=== PATIENT | female | born 1955 | race African-American/Black ===

== ENCOUNTER 2018-04-01 08:15 | Emergency (ER) | payer OTHER ==
[2018-04-01 09:17] LABS: Absolute Lymphocytes (CBC) 3.4 K/uL (0.7-4.9); Absolute Monocytes 0.5 K/uL (0.1-1.3); Absolute Neutrophil 1.3 K/uL (1.8-8.0); Basophils % 0.8 % (0-1.3); Eosinophils % 1.7 % (0-4.4); Hematocrit 40.6 % (36.0-45.0); Lymphocytes % 63.3 % (15.3-44.8); MCH 29.3 pg (27.0-35.0); MCV 87.8 fL (80-100); MPV 10.3 fL (7.6-11.3); Monocytes % 9.3 % (3.3-12.3); RBC Red Blood Cell Count 4.62 M/uL (3.86-4.86)
[2018-04-01 09:20] LABS: Protime INR 0.99
[2018-04-01 09:37] LABS: ALT/SGPT 42 U/L (12-78); AST/SGOT 33 U/L (15-37); Albumin 3.5 g/dL (3.4-5.0); Alkaline Phosphatase 89 U/L (45-117); BUN Blood Urea Nitrogen 25 mg/dL (7-18); Bicarbonate 30 mmol/L (21-32); Bilirubin Direct < 0.1 mg/dL (0-0.2); Bilirubin Total 0.3 mg/dL (0.2-1.0); Creatine Phosphokinase 72 U/L (26-192); Glucose Level 108 mg/dL (74-106); Magnesium 2.2 mg/dL (1.8-2.4); NT PRO-BNP 191 pg/mL (<125); Potassium 3.7 mmol/L (3.5-5.1); Protein, Total 7.2 g/dL (6.4-8.2); Sodium Level 143 mmol/L (136-145)
[2018-04-01] MEDS ORDERED: KETOROLAC 30 MG/ML INJ ONE (09:51)
[2018-04-01] MEDS ORDERED: ONDANSETRON 4 MG/2 ML VIAL ONE (09:55)
[2018-04-01 10:14] LABS: Blood Morphology Comment NOT SEEN (NOT SEEN)
[2018-04-01 10:15] LABS: Platelet Estimate ADEQ
[2018-04-01 10:33] LABS: Urine Blood NEGATIVE (NEG); Urine Glucose NEGATIVE (NEG); Urine Protein TRACE (NEG)
--- NOTE | 2018-04-01 11:42 | RAD REPORT ---
EXAM DESCRIPTION: RAD - Chest Single View - 04/01/2018 8:59 am CLINICAL HISTORY: CHEST PAIN Chest pain. COMPARISON: No comparisons FINDINGS: Portable technique limits examination quality. The lungs are grossly clear. The heart is normal in size. No displaced fractures. IMPRESSION: No acute intrathoracic process suspected.
--- NOTE | 2018-04-01 15:14 | EDPHYS ---
Physician Documentation [facility] Name: Halima Valera Age: 62 yrs Sex: Female : 1955 Arrival Date: 04/01/2018 Time: 08:17 Bed 6 Private MD: ED Physician Viktor Wright HPI: 04/01 08:34 This 62 yrs old Black Female presents to ER via Ambulatory with complaints of Chest kdr Pain, COPD Exacerbation. 08:34 The patient or guardian reports chest pain that is located primarily in the substernal kdr area, anterior chest wall, right. Onset: suddenly, just prior to arrival, this morning. The pain does not radiate. Associated signs and symptoms: Pertinent positives: nausea, Pertinent negatives: abdominal pain, cough, diaphoresis, headache, lower extremity pain, lower extremity swelling, lightheadedness, near syncope, palpitations, recent travel, shortness of breath, syncope, vomiting. The chest pain is described as burning, sharp. Duration: The patient or guardian reports a single episode, that is still ongoing. Modifying factors: The symptoms are alleviated by nothing. the symptoms are aggravated by nothing. Severity of pain: At its worst the pain was mild in the emergency department the pain is unchanged. The patient has not experienced similar symptoms in the past. The patient has not recently seen a physician. Historical: - Allergies: 08:27 No Known Allergies; ss - Home Meds: 08:27 naproxen 500 mg Oral tab 1 tab every 12 hours [Active]; valsartan-hydrochlorothiazide ss oral oral once daily [Active]; atorvastatin 10 mg oral tab 1 tab once daily [Active]; - PMHx: 08:27 Hypertension; substance abuse (crack); Hepatitis; ss - Immunization history:: Adult Immunizations unknown. - Social history:: Smoking status: Patient uses tobacco products, denies chronic smoking, but will smoke occasionally. - Ebola Screening: : Patient denies exposure to infectious person Patient denies travel to an Ebola-affected area in the 21 days before illness onset. ROS: 08:34 Constitutional: Negative for fever, chills, and weight loss, Eyes: Negative for injury, kdr pain, redness, and discharge, ENT: Negative for injury, pain, and discharge, Neck: Negative for injury, pain, and swelling, Respiratory: Negative for shortness of breath, cough, wheezing, and pleuritic chest pain, Abdomen/GI: Negative for abdominal pain, nausea, vomiting, diarrhea, and constipation, Back: Negative for injury and pain, : Negative for injury, bleeding, discharge, and swelling, MS/Extremity: Negative for injury and deformity, Skin: Negative for injury, rash, and discoloration, Neuro: Negative for headache, weakness, numbness, tingling, and seizure activity. 08:34 Cardiovascular: Positive for chest pain, Negative for edema, orthopnea, palpitations, paroxysmal nocturnal dyspnea. Exam: 08:34 Constitutional: This is a well developed, well nourished patient who is awake, alert, kdr and in no acute distress. Head/Face: Normocephalic, atraumatic. Eyes: Pupils equal round and reactive to light, extra-ocular motions intact. Lids and lashes normal. Conjunctiva and sclera are non-icteric and not injected. Cornea within normal limits. Periorbital areas with no swelling, redness, or edema. Neck: Trachea midline, no thyromegaly or masses palpated, and no cervical lymphadenopathy. Supple, full range of motion without nuchal rigidity, or vertebral point tenderness. No Meningismus. Chest/axilla: Normal chest wall appearance and motion. Nontender with no deformity. No lesions are appreciated. Cardiovascular: Regular rate and rhythm with a normal S1 and S2. No gallops, murmurs, or rubs. Normal PMI, no JVD. No pulse deficits. Respiratory: Lungs have equal breath sounds bilaterally, clear to auscultation and percussion. No rales, rhonchi or wheezes noted. No increased work of breathing, no retractions or nasal flaring. Abdomen/GI: Soft, non-tender, with normal bowel sounds. No distension or tympany. No guarding or rebound. No evidence of tenderness throughout. Back: No spinal tenderness. No costovertebral tenderness. Full range of motion. Skin: Warm, dry with normal turgor. Normal color with no rashes, no lesions, and no evidence of cellulitis. MS/ Extremity: Pulses equal, no cyanosis. Neurovascular intact. Full, normal range of motion. Neuro: Awake and alert, GCS 15, oriented to person, place, time, and situation. Cranial nerves II-XII grossly intact. Motor strength 5/5 in all extremities. Sensory grossly intact. Cerebellar exam normal. Normal gait. Psych: Awake, alert, with orientation to person, place and time. Behavior, mood, and affect are within normal limits. Vital Signs: 08:31 BP 170 / 82; Pulse 57; Resp 16; Temp 97.1; Pulse Ox 100% on R/A; Weight 58.97 kg; ph Height 5 ft. 4 in. (162.56 cm); Pain 9/10; 09:45 BP 149 / 61; Pulse 52; Resp 22; Pulse Ox 99% on R/A; Pain 9/10; ph 10:30 BP 139 / 82; Pulse 48; Resp 16; Pulse Ox 99% ; jl7 11:23 BP 139 / 88; Pulse 77; Resp 18; Pulse Ox 99% on R/A; Pain 6/10; ph 12:00 BP 155 / 85; Pulse 56; Resp 18; Pulse Ox 97% ; jl7 13:00 BP 191 / 86; Pulse 49; Resp 16 S; Pulse Ox 98% on R/A; jl7 13:30 BP 185 / 83; Pulse 47; Resp 16; Pulse Ox 98% ; jl7 14:34 BP 169 / 81; Pulse 46; Resp 15; Pulse Ox 99% on R/A; Pain 0/10; ss 15:48 BP 168 / 79; Pulse 51; Resp 18; Pulse Ox 99% ; jl7 08:31 Body Mass Index 22.31 (58.97 kg, 162.56 cm) ph MDM: 08:34 HEART Score: History: Slightly Suspicious (0), ECG: Normal (0), Age: > 45 and < 65 kdr years (1), Risk Factors: 1 or 2 risk factors (1), Troponin: < or = 1 x Normal Limit (0). Data reviewed: vital signs, nurses notes. 15:13 Patient medically screened. [facility] 04/01 08:19 Order name: Basic Metabolic Panel [facility] 04/01 08:19 Order name: CBC with Diff; Complete Time: 12:26 kdr 04/01 08:19 Order name: Ckmb; Complete Time: 10:00 [facility] 04/01 08:19 Order name: CPK; Complete Time: 10:00 [facility] 04/01 08:19 Order name: LFT's; Complete Time: 10:00 [facility] 04/01 08:19 Order name: Magnesium; Complete Time: 10:00 [facility] 04/01 08:19 Order name: NT PRO-BNP; Complete Time: 10:00 [facility] 04/01 08:19 Order name: PT-INR; Complete Time: 10: [facility] 04/01 08:19 Order name: Ptt, Activated; Complete Time: 10: [facility] 04/01 08:19 Order name: Troponin (emerg Dept Use Only); Complete Time: 10: [facility] 04/01 08:19 Order name: Basic Metabolic Panel; Complete Time: 10: [facility] 04/01 10:12 Order name: Manual Differential; Complete Time: 12:26 [facility] 04/01 10:16 Order name: Slides for Pathologist Review [facility] 04/01 08:19 Order name: XRAY Chest (1 view); Complete Time: 12:26 [facility] 04/01 08:19 Order name: EKG; Complete Time: 08:20 [facility] 04/01 08:19 Order name: Cardiac monitoring; Complete Time: 09:36 [facility] 04/01 08:19 Order name: EKG - Nurse/Tech; Complete Time: 08:57 [facility] 04/01 08:19 Order name: IV Saline Lock; Complete Time: 08:57 [facility] 04/01 08:19 Order name: Labs collected and sent; Complete Time: 08:57 [facility] 04/01 08:19 Order name: O2 Per Protocol; Complete Time: 08:58 [facility] 04/01 08:19 Order name: O2 Sat Monitoring; Complete Time: 09:36 [facility] 04/01 08:19 Order name: Urine Dipstick-Ancillary (obtain specimen); Complete Time: 11:13 [facility] 04/01 10:24 Order name: Urine Dipstick--Ancillary (enter results) eb 04/01 10:24 Order name: Urine Dipstick-Ancillary; Complete Time: 12:26 [facility] 04/01 12:48 Order name: Troponin (emerg Dept Use Only); Complete Time: 15:12 [facility] 04/01 14:33 Order name: Diet Regular; Complete Time: 14:33 eb Administered Medications: 09:57 Drug: TORadol 30 mg Route: IVP; Site: right antecubital; ph 10:27 Follow up: Response: No adverse reaction; Pain is decreased jl7 09:58 Not Given (Other Intervention Used): morphine 4 mg IVP once ph 09:58 Drug: Zofran 4 mg Route: IVP; Site: right antecubital; ph 10:28 Follow up: Response: No adverse reaction jl7 Disposition: 04/01/18 15:13 Discharged to Home. Impression: Chest pain, unspecified. - Condition is Stable. - Discharge Instructions: Chest Wall Pain, [id number], Nonspecific Chest Pain, [id number]. - Prescriptions for Albuterol Sulfate 90 mcg/actuation Inhalation - inhale 1-2 puff by INHALATION route every 4-6 hours As needed; 2 Inhaler. - Medication Reconciliation Form, Thank You Letter form. - Follow up: Private Physician; When: 2 - 3 days; Reason: If symptoms return, Further diagnostic work-up, Recheck today's complaints, Continuance of care, Re-evaluation by your physician. - Problem is an acute exacerbation. - Symptoms have improved. Signatures: Dispatcher [employer] [facility] Viktor Wright MD MD kdr Elis Benitez, NEUROSURGERY PHYSICIAN-C NEUROSURGERY PHYSICIAN-[facility] Regina Uribe RN RN Sylvia Valerio RN RN Britni Gaspar RN RN jl7 Corrections: (The following items were deleted from the chart) 10:12 09:23 CBC Smear Scan ordered. [facility] 15:54 15:13 04/01/2018 15:13 Discharged to Home. Impression: Chest pain, unspecified. jl7 Condition is Stable. Forms are Medication Reconciliation Form, Thank You Letter, Antibiotic Education, Prescription Opioid Use. Follow up: Private Physician; When: 2 - 3 days; Reason: If symptoms return, Further diagnostic work-up, Recheck today's complaints, Continuance of care, Re-evaluation by your physician. Problem is an acute exacerbation. Symptoms have improved. kdr
--- NOTE | 2018-04-01 15:14 | ER ---
Nurse's Notes [facility] Name: Halima Valera Age: 62 yrs Sex: Female : 1955 Arrival Date: 04/01/2018 Time: 08:17 Bed 6 Private MD: Diagnosis: Chest pain, unspecified Presentation: 04/01 08:23 Presenting complaint: Patient states: cough and chest pain that began this morning. Pt ss reports a hx of COPD. Transition of care: resident as [facility], in treatment for "Crack". Onset of symptoms was April 01, 2018. Risk Assessment: Do you want to hurt yourself or someone else? Patient reports no desire to harm self or others. Initial Sepsis Screen: Does the patient meet any 2 criteria? No. Patient's initial sepsis screen is negative. Does the patient have a suspected source of infection? No. Patient's initial sepsis screen is negative. Care prior to arrival: None. 08:23 Acuity: FAVIO 3 ss 08:23 Method Of Arrival: Ambulatory ss Historical: - Allergies: 08:27 No Known Allergies; ss - Home Meds: 08:27 naproxen 500 mg Oral tab 1 tab every 12 hours [Active]; valsartan-hydrochlorothiazide ss oral oral once daily [Active]; atorvastatin 10 mg oral tab 1 tab once daily [Active]; - PMHx: 08:27 Hypertension; substance abuse (crack); Hepatitis; ss - Immunization history:: Adult Immunizations unknown. - Social history:: Smoking status: Patient uses tobacco products, denies chronic smoking, but will smoke occasionally. - Ebola Screening: : Patient denies exposure to infectious person Patient denies travel to an Ebola-affected area in the 21 days before illness onset. Screenin:32 Abuse screen: Denies threats or abuse. Denies injuries from another. Nutritional ph screening: No deficits noted. Tuberculosis screening: No symptoms or risk factors identified. Fall Risk None identified. Assessment: 08:36 General: Appears in no apparent distress. comfortable, slender, well groomed, Behavior ph is calm, cooperative, appropriate for age, Denies fever, feeling ill. Pain: Complains of pain in xyphoid area, mid-sternal area and right breast Pain currently is 9 out of 10 on a pain scale. Pain began suddenly. Neuro: Level of Consciousness is awake, alert, obeys commands, Oriented to person, place, time, situation. Cardiovascular: Capillary refill < 3 seconds in bilateral toes Patient's skin is warm and dry. Respiratory: Reports shortness of breath Airway is patent Respiratory effort is even, unlabored, Respiratory pattern is regular, symmetrical, Breath sounds are clear bilaterally. GI: No signs and/or symptoms were reported involving the gastrointestinal system. Derm: Skin is intact, is healthy with good turgor, Skin is pink, warm \\T\\ dry. Musculoskeletal: Circulation, motion, and sensation intact. Range of motion: intact in all extremities. 09:45 Reassessment: Patient appears in no apparent distress at this time. Patient and/or ph family updated on plan of care and expected duration. Pain level reassessed. Patient is alert, oriented x 3, equal unlabored respirations, skin warm/dry/pink. Pt c/o chest pain 10/10, requesting pain medication, ERP notified, see MAR. 11:22 Reassessment: Patient appears in no apparent distress at this time. Patient and/or ph family updated on plan of care and expected duration. Pain level reassessed. Patient is alert, oriented x 3, equal unlabored respirations, skin warm/dry/pink. Pt resting quietly, reports that pain has improved to 6/10, denies nausea, VSS, will continue to monitor. 12:30 Reassessment: Patient appears in no apparent distress at this time. No changes from jl7 previously documented assessment. Patient and/or family updated on plan of care and expected duration. Pain level reassessed. Patient is alert, oriented x 3, equal unlabored respirations, skin warm/dry/pink. Water and crackers brought to pt per pt request. 13:30 Reassessment: Patient and/or family updated on plan of care and expected duration. Pain jl7 level reassessed. Patient is alert, oriented x 3, equal unlabored respirations, skin warm/dry/pink. 14:33 Reassessment: Patient appears in no apparent distress at this time. Patient and/or ss family updated on plan of care and expected duration. Pain level reassessed. repeat troponin sent now. Awaiting for results. Diet tray ordered per patient request. 15:15 Reassessment: Patient and/or family updated on plan of care and expected duration. Pain jl7 level reassessed. Patient is alert, oriented x 3, equal unlabored respirations, skin warm/dry/pink. 15:35 Reassessment: Attempted to discharge pt, pt requested for provider to prescribe an jl7 inhaler because she gets short of breath in the middle of the night. Provider notified. Vital Signs: 08:31 BP 170 / 82; Pulse 57; Resp 16; Temp 97.1; Pulse Ox 100% on R/A; Weight 58.97 kg; ph Height 5 ft. 4 in. (162.56 cm); Pain 9/10; 09:45 BP 149 / 61; Pulse 52; Resp 22; Pulse Ox 99% on R/A; Pain 9/10; ph 10:30 BP 139 / 82; Pulse 48; Resp 16; Pulse Ox 99% ; jl7 11:23 BP 139 / 88; Pulse 77; Resp 18; Pulse Ox 99% on R/A; Pain 6/10; ph 12:00 BP 155 / 85; Pulse 56; Resp 18; Pulse Ox 97% ; jl7 13:00 BP 191 / 86; Pulse 49; Resp 16 S; Pulse Ox 98% on R/A; jl7 13:30 BP 185 / 83; Pulse 47; Resp 16; Pulse Ox 98% ; jl7 14:34 BP 169 / 81; Pulse 46; Resp 15; Pulse Ox 99% on R/A; Pain 0/10; ss 15:48 BP 168 / 79; Pulse 51; Resp 18; Pulse Ox 99% ; jl7 08:31 Body Mass Index 22.31 (58.97 kg, 162.56 cm) ph ED Course: 08:17 Patient arrived in ED. as 08:19 Viktor Wright MD is Attending Physician. kdr 08:25 Triage completed. ss 08:26 EKG done, by ED staff, reviewed by Vikotr Wright MD. em1 08:31 Sylvia Valerio, TORY is Primary Nurse. ph 08:32 Arm band placed on. ph 08:33 Patient has correct armband on for positive identification. Placed in gown. Bed in low ph position. Call light in reach. Side rails up X 1. Pulse ox on. NIBP on. 08:44 Initial lab(s) drawn, by or, sent to lab. Inserted saline lock: 20 gauge in right jl7 forearm, using aseptic technique. Blood collected. 08:56 X-ray completed. Portable x-ray completed in exam room. Patient tolerated procedure kw well. 08:58 XRAY Chest (1 view) In Process Unspecified. EDMS 15:48 No provider procedures requiring assistance completed. IV discontinued, intact, jl7 bleeding controlled, No redness/swelling at site. Pressure dressing applied. Patient maintains SpO2 saturation greater than 95% on room air. Administered Medications: 09:57 Drug: TORadol 30 mg Route: IVP; Site: right antecubital; ph 10:27 Follow up: Response: No adverse reaction; Pain is decreased jl7 09:58 Not Given (Other Intervention Used): morphine 4 mg IVP once ph 09:58 Drug: Zofran 4 mg Route: IVP; Site: right antecubital; ph 10:28 Follow up: Response: No adverse reaction jl7 Outcome: 15:13 Discharge ordered by . kdr 15:48 Discharged to home ambulatory. jl7 15:48 Condition: stable 15:48 Discharge instructions given to patient, family, Instructed on discharge instructions, follow up and referral plans. medication usage, Demonstrated understanding of instructions, follow-up care, medications, Prescriptions given X 1. 15:54 Patient left the ED. jl7 Signatures: Dispatcher [employer] ED[facility] Viktor Wright MD MD kdr Martinez, Amelia as Martinez, Eric em1 Regina Uribe, Felicita Riddle RN, Patricia, RN RN Britni Gaspar RN RN jl7
[2018-04-01] MEDS ORDERED: DEXAMETHASONE 10 MG/ML VIAL ONE (15:28)
[2018-04-01] MEDS ORDERED: CLINDAMYCIN 900MG/D5W 900 MG/50 ML BAG IV ONE (15:29)
--- NOTE | 2018-04-02 09:35 | EKG ---
Test Date: 2018-04-01 Test Time: 08:26:14 Mohs Surgeon/General Dermatologist: MINOO MEASUREMENT RESULTS: Intervals: Rate: 54 UT: 176 QRSD: 56 QT: 434 QTc: 411 [place]: P: 79 UT: 176 QRS: 47 T: 87 INTERPRETIVE STATEMENTS: Sinus bradycardia Cannot rule out Septal infarct, age undetermined Abnormal ECG No previous ECG available for comparison Electronically Signed On 04-02-18 09:34:11 CDT by David Villareal
== END 2018-04-01 15:54 | disposition home or self-care (01) ==
LOC: ER 08:15
DX: R07.9 Chest pain, unspecified (principal); I10 Essential (primary) hypertension; J44.9 Chronic obstructive pulmonary disease, unspecified; Z72.0 Tobacco use
CPT/HCPCS: 36415; 71045; 80048; 80076; 81003; 82550; 82553; 83735; 83880; 84484 ×2; 85025; 85610; 85730; 93005; 96374; 96375; 99285; J1100; J2405

== ENCOUNTER 2018-04-03 11:08 | Emergency (ER) | payer OTHER ==
--- NOTE | 2018-04-03 13:01 | RAD REPORT ---
EXAM DESCRIPTION: RAD - Foot Right 3 View - 04/03/2018 12:54 pm CLINICAL HISTORY: Pain;Swelling COMPARISON: No comparisons FINDINGS: Soft tissue swelling is seen affecting the great toe. No fracture or dislocation. A promin ent plantar calcaneal spur is seen.
--- NOTE | 2018-04-03 14:31 | EDPHYS ---
Physician Documentation [facility] Name: Halima Valera Age: 62 yrs Sex: Female : 1955 Arrival Date: 04/03/2018 Time: 11:10 Bed 12 Private MD: ED Physician Mark Tamez HPI: 04/03 14:27 This 62 yrs old Black Female presents to ER via Ambulatory with complaints of FOOT surya SWELLING. 14:27 The patient presents with decreased range of motion, pain, that is acute. surya Historical: - Allergies: 11:33 No Known Allergies; hj - Home Meds: 11:33 atorvastatin 10 mg Oral tab 1 tab once daily [Active]; naproxen 500 mg Oral tab 1 tab hj every 12 hours [Active]; valsartan-hydrochlorothiazide Oral once daily [Active]; - PMHx: 11:33 Hepatitis; Hypertension; substance abuse (crack); hj - PSHx: 11:33 None; hj - Immunization history:: Adult Immunizations up to date. - Social history:: Smoking status: Patient uses tobacco products, Patient uses alcohol, occasionally. street drugs, cocaine. - Ebola Screening: : Patient negative for fever greater than or equal to 101.5 degrees Fahrenheit, and additional compatible Ebola Virus Disease symptoms Patient denies exposure to infectious person Patient denies travel to an Ebola-affected area in the 21 days before illness onset. - Family history:: not pertinent. ROS: 14:27 Constitutional: Negative for fever, chills, and weight loss, Eyes: Negative for injury, surya pain, redness, and discharge, ENT: Negative for injury, pain, and discharge, Neck: Negative for injury, pain, and swelling, Cardiovascular: Negative for chest pain, palpitations, and edema, Respiratory: Negative for shortness of breath, cough, wheezing, and pleuritic chest pain, Abdomen/GI: Negative for abdominal pain, nausea, vomiting, diarrhea, and constipation, Back: Negative for injury and pain, : Negative for injury, bleeding, discharge, and swelling, Skin: Negative for injury, rash, and discoloration, Neuro: Negative for headache, weakness, numbness, tingling, and seizure, Psych: Negative for depression, anxiety, suicide ideation, homicidal ideation, and hallucinations, Allergy/Immunology: Negative for hives, rash, and allergies, Endocrine: Negative for neck swelling, polydipsia, polyuria, polyphagia, and marked weight changes, Hematologic/Lymphatic: Negative for swollen nodes, abnormal bleeding, and unusual bruising. 14:27 MS/extremity: Positive for pain, tenderness, of the right foot. Exam: 14:27 Constitutional: This is a well developed, well nourished patient who is awake, alert, surya and in no acute distress. Head/Face: Normocephalic, atraumatic. Eyes: Pupils equal round and reactive to light, extra-ocular motions intact. Lids and lashes normal. Conjunctiva and sclera are non-icteric and not injected. Cornea within normal limits. Periorbital areas with no swelling, redness, or edema. ENT: Nares patent. No nasal discharge, no septal abnormalities noted. Tympanic membranes are normal and external auditory canals are clear. Oropharynx with no redness, swelling, or masses, exudates, or evidence of obstruction, uvula midline. Mucous membranes moist. Neck: Trachea midline, no thyromegaly or masses palpated, and no cervical lymphadenopathy. Supple, full range of motion without nuchal rigidity, or vertebral point tenderness. No Meningismus. Chest/axilla: Normal chest wall appearance and motion. Nontender with no deformity. No lesions are appreciated. Cardiovascular: Regular rate and rhythm with a normal S1 and S2. No gallops, murmurs, or rubs. Normal PMI, no JVD. No pulse deficits. Respiratory: Lungs have equal breath sounds bilaterally, clear to auscultation and percussion. No rales, rhonchi or wheezes noted. No increased work of breathing, no retractions or nasal flaring. Abdomen/GI: Soft, non-tender, with normal bowel sounds. No distension or tympany. No guarding or rebound. No evidence of tenderness throughout. Back: No spinal tenderness. No costovertebral tenderness. Full range of motion. Female : Normal external genitalia. Skin: Warm, dry with normal turgor. Normal color with no rashes, no lesions, and no evidence of cellulitis. Neuro: Awake and alert, GCS 15, oriented to person, place, time, and situation. Cranial nerves II-XII grossly intact. Motor strength 5/5 in all extremities. Sensory grossly intact. Cerebellar exam normal. Normal gait. Psych: Awake, alert, with orientation to person, place and time. Behavior, mood, and affect are within normal limits. 14:27 Musculoskeletal/extremity: Extremities: noted in the ball of right foot: pain, swelling, tenderness, DVT Exam: negative Homans' sign noted on exam, no appreciated bluish discoloration, no erythema, no increased warmth, pain, swelling, tenderness. Vital Signs: 11:35 BP 138 / 58; Pulse 60; Resp 18; Temp 98.1(O); Pulse Ox 99% on R/A; Weight 58.97 kg; hj Height 5 ft. 4 in. (162.56 cm); Pain 10/10; 11:35 Body Mass Index 22.32 (58.97 kg, 162.56 cm) MDM: 13:28 Patient medically screened. [facility] 14:27 Data reviewed: vital signs, nurses notes, radiologic studies. [facility] 04/03 11:36 Order name: XRAY Foot RIGHT 3 View; Complete Time: 14:26 04/03 14:26 Order name: Post-op shoe; Complete Time: 16:02 [facility] 04/03 14:30 Order name: Blood Glucose Level; Complete Time: 14:54 [facility] Administered Medications: 14:54 Not Given (Patient Refused): [place] (7.5 mg-325 mg) 1 tabs PO once iw 15:17 Drug: Naproxen 500 mg Route: PO; iw Point of Care Testing: Blood Glucose: 14:54 Blood Glucose: 70 mg/dL; iw Ranges: Critical Glucose Levels:Adult <50 mg/dl or >400 mg/dl <40 mg/dl or >180 mg/dl Disposition: 04/03/18 14:30 Discharged to Home. Impression: Pain in right foot. - Condition is Stable. - Discharge Instructions: Musculoskeletal Pain, Foot Pain. - Prescriptions for Tylenol- Codeine #3 300-30 mg Oral Tablet - take 2 tablets by ORAL route every 6 hours As needed; 20 tablet. Naprosyn 375 mg Oral Tablet - take 1 tablet by ORAL route 2 times per day take with food; 20 tablet. - Medication Reconciliation Form, Thank You Letter, Antibiotic Education, Prescription Opioid Use form. - Follow up: Private Physician; When: 2 - 3 days; Reason: Recheck today's complaints, Continuance of care, Re-evaluation by your physician. Follow up: Rasheed Ruiz DPM; When: 2 - 3 days; Reason: Recheck today's complaints, Continuance of care, Re-evaluation by your physician. - Problem is new. - Symptoms have improved. Signatures: Dispatcher [employer] EDMS Mark Tamez MD MD cha Williams, Irene, RN RN iw Joaquin, Henry, RN RN hj Corrections: (The following items were deleted from the chart) 16:07 14:30 04/03/2018 14:30 Discharged to Home. Impression: Pain in right foot. Condition is surya Stable. Forms are Medication Reconciliation Form, Thank You Letter, Antibiotic Education, Prescription Opioid Use. Follow up: Private Physician; When: 2 - 3 days; Reason: Recheck today's complaints, Continuance of care, Re-evaluation by your physician. Follow up: Dr. Rasheed Ruiz; When: 2 - 3 days; Reason: Recheck today's complaints, Continuance of care, Re-evaluation by your physician. Problem is new. Symptoms have improved. surya
--- NOTE | 2018-04-03 14:31 | ER ---
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 Transition of care: patient was not received from another setting of care. Onset of symptoms was April 03, 2018. Risk Assessment: Do you want to hurt yourself or someone else? Patient reports no desire to harm self or others. Initial Sepsis Screen: Does the patient meet any 2 criteria? No. Patient's initial sepsis screen is negative. Does the patient have a suspected source of infection? No. Patient's initial sepsis screen is negative. Care prior to arrival: None. 11:31 Method Of Arrival: Ambulatory 11:31 Acuity: FAVIO 4 hj Triage Assessment: 11:35 General: Appears in no apparent distress. uncomfortable, Behavior is calm, cooperative, hj appropriate for age. Pain: Complains of pain in right foot. Historical: - Allergies: 11:33 No Known Allergies; hj - Home Meds: 11:33 atorvastatin 10 mg Oral tab 1 tab once daily [Active]; naproxen 500 mg Oral tab 1 tab hj every 12 hours [Active]; valsartan-hydrochlorothiazide Oral once daily [Active]; - PMHx: 11:33 Hepatitis; Hypertension; substance abuse (crack); hj - PSHx: 11:33 None; hj - Immunization history:: Adult Immunizations up to date. - Social history:: Smoking status: Patient uses tobacco products, Patient uses alcohol, occasionally. street drugs, cocaine. - Ebola Screening: : Patient negative for fever greater than or equal to 101.5 degrees Fahrenheit, and additional compatible Ebola Virus Disease symptoms Patient denies exposure to infectious person Patient denies travel to an Ebola-affected area in the 21 days before illness onset. - Family history:: not pertinent. Screenin:34 Abuse screen: Denies threats or abuse. Denies injuries from another. Nutritional hj screening: No deficits noted. Tuberculosis screening: No symptoms or risk factors identified. Fall Risk None identified. Assessment: 15:00 General: Appears in no apparent distress. comfortable, Behavior is calm, cooperative. iw Pain: Complains of pain in ball of right foot and right foot. Neuro: Level of Consciousness is awake, alert, obeys commands, Oriented to person, place, time, situation, Moves all extremities. Full function. Cardiovascular: Patient's skin is warm and dry. Respiratory: Respiratory effort is even, unlabored. Derm: Skin is pink, warm \T\ dry. normal. Musculoskeletal: Range of motion: intact in all extremities, Reports pain in ball of right foot. Vital Signs: 11:35 BP 138 / 58; Pulse 60; Resp 18; Temp 98.1(O); Pulse Ox 99% on R/A; Weight 58.97 kg; hj Height 5 ft. 4 in. (162.56 cm); Pain 10/10; 11:35 Body Mass Index 22.32 (58.97 kg, 162.56 cm) ED Course: 11:10 Patient arrived in ED. rg4 11:33 Triage completed. hj 11:35 Arm band placed on right wrist. hj 11:35 Patient has correct armband on for positive identification. Bed in low position. Call hj light in reach. Side rails up X 1. 12:50 X-ray completed. Patient tolerated procedure well. Patient moved to radiology via mh1 wheelchair. Patient moved back from radiology. 12:52 XRAY Foot RIGHT 3 View In Process Unspecified. EDMS 13:26 Krystin Jackson, RN is Primary Nurse. iw 13:28 Mark Tamez MD is Attending Physician. [facility] 14:29 Rasheed Ruiz DPM is Referral Physician. [facility] 16:00 No provider procedures requiring assistance completed. Patient did not have IV access iw during this emergency room visit. Administered Medications: 14:54 Not Given (Patient Refused): [place] (7.5 mg-325 mg) 1 tabs PO once iw 15:17 Drug: Naproxen 500 mg Route: PO; iw Point of Care Testing: Blood Glucose: 14:54 Blood Glucose: 70 mg/dL; iw Ranges: Outcome: 14:30 Discharge ordered by . surya 16:05 Discharged to home ambulatory. iw 16:05 Condition: good 16:05 Discharge instructions given to patient, Instructed on discharge instructions, follow up and referral plans. medication usage, Demonstrated understanding of instructions, follow-up care, medications, Prescriptions given X 1. 16:07 Patient left the ED. surya Signatures: Dispatcher [employer] EDMS Mark Tamez MD MD cha Harvey, Martha 1 Krystin Jackson RN RN iw Joaquin, Henry, RN RN hj Garcia, Rubi rg4 Corrections: (The following items were deleted from the chart) 11:38 11:35 Pulse 60bpm; Resp 18bpm; Pulse Ox 99% RA; Temp 98.1F Oral; 58.97 kg; Height 5 ft. hj 4 in.; BMI: 22.3; Pain 10; hj
[2018-04-03] MEDS ORDERED: HYDROCODONE/APAP 7.5/325 MG TAB ONE (14:49)
[2018-04-03] MEDS ORDERED: NAPROXEN 250 MG TAB PO ONE (16:00)
== END 2018-04-03 16:07 | disposition home or self-care (01) ==
LOC: ER 11:08
DX: M79.671 Pain in right foot (principal); I10 Essential (primary) hypertension; Z72.0 Tobacco use
CPT/HCPCS: 82962; 99283

== ENCOUNTER 2018-04-12 09:57 | Emergency (ER) | payer OTHER ==
--- NOTE | 2018-04-12 11:08 | RAD REPORT ---
EXAM DESCRIPTION: CT - Head Brain Wo Cont - 04/12/2018 11:02 am CLINICAL HISTORY: HEADACHE COMPARISON: No comparisons TECHNIQUE: All CT scans are performed using dose optimization technique as appropriate and may inclu de automated exposure control or mA/KV adjustment according to patient size. FINDINGS: No intracranial hemorrhage, hydrocephalus or extra-axial fluid collection.Moderate brain a trophy is seen.No areas of brain edema or evidence of midline shift. The paranasal sinuses and mastoids are clear. The calvarium is intact. IMPRESSION: No acute intracranial abnormality.
[2018-04-12] MEDS ORDERED: TETRACAINE HCL 0.5% 2ML OPTH ONE (11:15)
[2018-04-12] MEDS ORDERED: FLUORESCEIN SODIUM 0.6 MG/WRAP ONE (11:15)
--- NOTE | 2018-04-12 12:27 | ER ---
Nurse's Notes [facility] Name: Halima Valera Age: 62 yrs Sex: Female : 1955 Arrival Date: 04/12/2018 Time: 10:00 Bed 15 Private MD: None, None Diagnosis: Headache Presentation: 04/12 10:01 Presenting complaint: Patient states: stays at [place], i felt something is hj pricking on my R eye, started last night, sharp pain; denies blurry vision, denies trauma to the area;. Transition of care: patient was not received from another setting of care. Onset of symptoms was April 12, 2018. Risk Assessment: Do you want to hurt yourself or someone else? Patient reports no desire to harm self or others. Initial Sepsis Screen: Does the patient meet any 2 criteria? No. Patient's initial sepsis screen is negative. Does the patient have a suspected source of infection? No. Patient's initial sepsis screen is negative. Care prior to arrival: None. 10:01 Method Of Arrival: Ambulatory 10: Method Of Arrival: Ambulatory 10: Acuity: FAVIO 4 hj Triage Assessment: 10:04 General: Appears in no apparent distress. uncomfortable, Behavior is calm, cooperative, hj appropriate for age. Pain: Complains of pain in right eye Pain currently is 8 out of 10 on a pain scale. Historical: - Allergies: 10:03 No Known Allergies; hj - Home Meds: 10:03 atorvastatin 10 mg Oral tab 1 tab once daily [Active]; naproxen 500 mg Oral tab 1 tab hj every 12 hours [Active]; valsartan-hydrochlorothiazide Oral once daily [Active]; - PMHx: 10:03 Hepatitis; Hypertension; substance abuse (crack); hj - PSHx: 10:03 None; hj - Immunization history:: Adult Immunizations up to date. - Social history:: Smoking status: Patient uses tobacco products, Patient uses alcohol. - Ebola Screening: : Patient negative for fever greater than or equal to 101.5 degrees Fahrenheit, and additional compatible Ebola Virus Disease symptoms Patient denies exposure to infectious person Patient denies travel to an Ebola-affected area in the 21 days before illness onset. Screenin:03 Abuse screen: Denies threats or abuse. Has been threatened or abused. Nutritional hj screening: No deficits noted. Tuberculosis screening: No symptoms or risk factors identified. Fall Risk None identified. Assessment: 10:15 General: Appears comfortable, Behavior is calm, cooperative. Pain: Complains of pain in aa5 right eye Pain does not radiate. Pain currently is 8 out of 10 on a pain scale. Quality of pain is described as sharp, Pain began last night Is continuous. 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 Speech is normal, Facial symmetry appears normal, Pupils are PERRLA, Denies blurred vision dizziness, paresthesias numbness headache. Cardiovascular: Heart tones S1 S2 present Rhythm is regular. Respiratory: Airway is patent Respiratory effort is even, unlabored, Respiratory pattern is regular, symmetrical. GI: No signs and/or symptoms were reported involving the gastrointestinal system. : No signs and/or symptoms were reported regarding the genitourinary system. EENT: Reports pain in right eye. Derm: Skin is dry, Skin is normal, Skin temperature is warm. Musculoskeletal: Range of motion: intact in all extremities. 12:00 Reassessment: Patient and/or family updated on plan of care and expected duration. Pain aa5 level reassessed. Neuro: Level of Consciousness is awake, alert, obeys commands, Oriented to person, place, time, situation. Respiratory: Airway is patent Respiratory effort is even, unlabored, Respiratory pattern is regular, symmetrical. Derm: Skin is dry, Skin is normal, Skin temperature is warm. Vital Signs: 10:04 BP 125 / 67; Pulse 60; Resp 18; Temp 97.3(TE); Pulse Ox 100% on R/A; Weight 59.42 kg; hj Height 5 ft. 4 in. (162.56 cm); Pain 8/10; 10:04 Body Mass Index 22.49 (59.42 kg, 162.56 cm) hj Visual Acuity: 11:16 Left Eye Visual acuity 20/20, Pupil size 3 mm, Brisk; Right Eye Visual acuity 20/15, jl7 Pupil size 3 mm, Brisk; Both Eyes Visual acuity 20/15; Without Lenses; ED Course: 10:00 Patient arrived in ED. mr 10:00 None, None is Private Physician. mr 10:03 Triage completed. hj 10:04 Arm band placed on left wrist. hj 10:04 Patient has correct armband on for positive identification. Bed in low position. Call hj light in reach. Side rails up X 1. 10:17 [facility]. pm1 10:17 Robert Marquez MD is Attending Physician. pm1 10:26 Lashonda Kolb, RN is Primary Nurse. aa5 10:[address] 11:02 CT Head Brain wo Cont In Process Unspecified. EDMS 11:15 Assist provider with eye exam of right eye. using fluorescein stain, Performed by jb4 Benjamin Parham NP Patient tolerated well. 13:13 Patient did not have IV access during this emergency room visit. jb4 Administered Medications: 11:15 Drug: Tetracaine Drops 0.5 % 1 drops {Note: Administered by Benjamin Parham NP.} jl7 Route: Ophthalmic; Site: left eye; 11:32 Follow up: Response: No adverse reaction jl7 12:39 Drug: TORadol 30 mg Route: IM; Site: left deltoid; aa5 12:45 Follow up: Response: No adverse reaction aa5 Outcome: 12:26 Discharge ordered by MD. pm1 13:13 Discharged to home ambulatory. jb4 13:13 Condition: stable 13:13 Discharge instructions given to patient, Instructed on discharge instructions, follow up and referral plans. Demonstrated understanding of instructions, follow-up care. 13:14 Patient left the ED. jb4 Signatures: Dispatcher [employer] EDIN Zandra Abbott Judith Webber Lashonda Kolb, TORY RN aa5 Andrzej Lopez, RN Benjamin Reid NP [employer] pm1 Kirill Villarreal RN RN jb4 Britni Gaspar RN RN jl7 Corrections: (The following items were deleted from the chart) 10:06 10:04 Pulse 60bpm; Resp 18bpm; Pulse Ox 100% RA; Temp 97.3F Temporal; 59.42 kg; Height hj 5 ft. 4 in.; BMI: 22.4; Pain 8/10; hj 13:13 11:15 Patient did not have IV access during this emergency room visit. jb4 jb4
--- NOTE | 2018-04-12 12:27 | EDPHYS ---
Physician Documentation [facility] Name: Halima Valera Age: 62 yrs Sex: Female : 1955 Arrival Date: 04/12/2018 Time: 10:00 Bed 15 Private MD: None, None ED Physician Robert Marquez HPI: 04/12 11:00 This 62 yrs old Black Female presents to ER via Ambulatory with complaints of Headache. pm1 11:00 Headache, Pain behind her right eye. Onset: The symptoms/episode began/occurred pm1 yesterday. Duration: the symptoms are intermittent, last a few seconds. Aggravated by Light Alleviated by nothing. Associated signs and symptoms: Pertinent negatives: dizziness, ear ache, fever, runny nose. Patient wears glasses. Severity of symptoms: in the emergency department the symptoms have resolved. The patient has not experienced similar symptoms in the past. The patient has not recently seen a physician. Patient currently at [facility] for substance abuse help. Patient complaining of headache with pain behind her right eye. Patient reports rubbing her right eye. No discharge, redness, matting. Has a history of right eye excessive tearing. Historical: - Allergies: 10:03 No Known Allergies; hj - Home Meds: 10:03 atorvastatin 10 mg Oral tab 1 tab once daily [Active]; naproxen 500 mg Oral tab 1 tab hj every 12 hours [Active]; valsartan-hydrochlorothiazide Oral once daily [Active]; - PMHx: 10:03 Hepatitis; Hypertension; substance abuse (crack); hj - PSHx: 10:03 None; hj - Immunization history:: Adult Immunizations up to date. - Social history:: Smoking status: Patient uses tobacco products, Patient uses alcohol. - Ebola Screening: : Patient negative for fever greater than or equal to 101.5 degrees Fahrenheit, and additional compatible Ebola Virus Disease symptoms Patient denies exposure to infectious person Patient denies travel to an Ebola-affected area in the 21 days before illness onset. ROS: 11:00 Constitutional: Negative for fever, chills, and weight loss, Eyes: Negative for injury, pm1 pain, redness, and discharge, ENT: Negative for injury, pain, and discharge, Neck: Negative for injury, pain, and swelling, Cardiovascular: Negative for chest pain, palpitations, and edema, Respiratory: Negative for shortness of breath, cough, wheezing, and pleuritic chest pain, Abdomen/GI: Negative for abdominal pain, nausea, vomiting, diarrhea, and constipation, Back: Negative for injury and pain, : Negative for injury, bleeding, discharge, and swelling, MS/Extremity: Negative for injury and deformity, Skin: Negative for injury, rash, and discoloration. 11:00 Neuro: Positive for headache, Negative for dizziness, loss of consciousness, numbness, tingling, weakness. Exam: 11:00 Constitutional: This is a well developed, well nourished patient who is awake, alert, pm1 and in no acute distress. Head/Face: Normocephalic, atraumatic. Eyes: Pupils equal round and reactive to light, extra-ocular motions intact. Lids and lashes normal. Conjunctiva and sclera are non-icteric and not injected. Cornea within normal limits. Periorbital areas with no swelling, redness, or edema. ENT: Nares patent. No nasal discharge, no septal abnormalities noted. Tympanic membranes are normal and external auditory canals are clear. Oropharynx with no redness, swelling, or masses, exudates, or evidence of obstruction, uvula midline. Mucous membranes moist. Neck: Trachea midline, no thyromegaly or masses palpated, and no cervical lymphadenopathy. Supple, full range of motion without nuchal rigidity, or vertebral point tenderness. No Meningismus. Chest/axilla: Normal chest wall appearance and motion. Nontender with no deformity. No lesions are appreciated. Cardiovascular: Regular rate and rhythm with a normal S1 and S2. No gallops, murmurs, or rubs. Normal PMI, no JVD. No pulse deficits. Respiratory: Lungs have equal breath sounds bilaterally, clear to auscultation and percussion. No rales, rhonchi or wheezes noted. No increased work of breathing, no retractions or nasal flaring. Abdomen/GI: Soft, non-tender, with normal bowel sounds. No distension or tympany. No guarding or rebound. No evidence of tenderness throughout. Back: No spinal tenderness. No costovertebral tenderness. Full range of motion. Skin: Warm, dry with normal turgor. Normal color with no rashes, no lesions, and no evidence of cellulitis. MS/ Extremity: Pulses equal, no cyanosis. Neurovascular intact. Full, normal range of motion. 11:00 Neuro: Orientation: is normal, Motor: is normal, moves all fours. 11:00 Neuro: Cranial nerves: CN II- XII are normal as tested, Cerebellar function: normal pm1 finger to nose testing, Sensation: is normal, no obvious gross deficits, Gait: is steady, at a normal pace, without difficulty. 11:28 Visual Acuity: I have reviewed the nursing documentation. pm1 11:28 Eyes: Pupils: no acute changes, normal size, shape is regular, normal reaction to light, Extraocular movements: intact throughout, Conjunctiva: no acute changes, no chemosis, no excoriation, no exudate, no injection, no subconjunctival hemorrhage no abnormal tearing, Corneas: are normal, no evidence of abrasion, no foreign body, foreign body, is not appreciated, a fluorescein strip employed to appreciate the findings, Sclera: no appreciated abnormality, no acute changes, Anterior chamber: normal, no hyphema, Lids and lashes: appear normal, abrasion(s), are not appreciated, drainage, is not appreciated, edema, is not appreciated, Examination of the other eye reveals no obvious gross abnormality. Vital Signs: 10:04 BP 125 / 67; Pulse 60; Resp 18; Temp 97.3(TE); Pulse Ox 100% on R/A; Weight 59.42 kg; hj Height 5 ft. 4 in. (162.56 cm); Pain 8/10; 10:04 Body Mass Index 22.49 (59.42 kg, 162.56 cm) Visual Acuity: 11:16 Left Eye Visual acuity 20/20, Pupil size 3 mm, Brisk; Right Eye Visual acuity 20/15, jl7 Pupil size 3 mm, Brisk; Both Eyes Visual acuity 20/15; Without Lenses; MDM: 10:27 Patient medically screened. pm1 12:26 Data reviewed: vital signs. Data interpreted: Pulse oximetry: on room air is 100 %. pm1 Interpretation: normal. Counseling: I had a detailed discussion with the patient and/or guardian regarding: the historical points, exam findings, and any diagnostic results supporting the discharge/admit diagnosis, radiology results, the need for outpatient follow up, to return to the emergency department if symptoms worsen or persist or if there are any questions or concerns that arise at home. 04/12 10:40 Order name: CT Head Brain wo Cont; Complete Time: 11:09 pm1 04/12 10:40 Order name: Visual Acuity; Complete Time: 11:18 pm1 04/12 10:40 Order name: Eye Tray; Complete Time: 11:11 pm1 04/12 10:40 Order name: Fluoresene Opth strip; Complete Time: 11:11 pm1 Administered Medications: 11:15 Drug: Tetracaine Drops 0.5 % 1 drops {Note: Administered by Benjamin Parham NP.} jl7 Route: Ophthalmic; Site: left eye; 11:32 Follow up: Response: No adverse reaction jl7 12:39 Drug: TORadol 30 mg Route: IM; Site: left deltoid; aa5 12:45 Follow up: Response: No adverse reaction aa5 Disposition: 15:23 Co-signature as Attending Physician, Robert Marquez MD. rn Disposition: 04/12/18 12:26 Discharged to Home. Impression: Headache. - Condition is Stable. - Discharge Instructions: General Headache Without Cause, [id number]. - Medication Reconciliation Form, Thank You Letter, Antibiotic Education form. - Follow up: Emergency Department; When: As needed; Reason: Worsening of condition. Follow up: Private Physician; When: 2 - 3 days; Reason: Recheck today's complaints, Continuance of care, Re-evaluation by your physician. - Problem is new. - Symptoms have improved. Signatures: Dispatcher [employer] EDMS Robert Marquez MD MD rn Calderon, Audri RN RN aa5 Andrzej Lopez RN Benjamin Reid NP EDUCATIONAL CONSULTANT pm1 Kirill Villarreal RN RN jb4 Britni Gaspar RN RN jl7 Corrections: (The following items were deleted from the chart) 13:14 12:26 04/12/2018 12:26 Discharged to Home. Impression: Headache. Condition is Stable. jb4 Discharge Instructions: General Headache Without Cause, [id number]. Forms are Medication Reconciliation Form, Thank You Letter, Antibiotic Education, Prescription Opioid Use. Follow up: Emergency Department; When: As needed; Reason: Worsening of condition. Follow up: Private Physician; When: 2 - 3 days; Reason: Recheck today's complaints, Continuance of care, Re-evaluation by your physician. Problem is new. Symptoms have improved. pm1
[2018-04-12] MEDS ORDERED: KETOROLAC 30 MG/ML INJ ONE (12:47)
== END 2018-04-12 13:14 | disposition home or self-care (01) ==
LOC: ER 09:57
DX: R51 Headache (principal); I10 Essential (primary) hypertension; Z72.0 Tobacco use
CPT/HCPCS: 70450; 96372; 99284